=== PATIENT | female | born 1980 | race Caucasian/White ===

== ENCOUNTER 2017-05-26 22:41 | Emergency (ER) | payer SELFPAY ==
[~2017-05-26] VITALS: Ht 172.7 cm; Wt 75.0 kg
[2017-05-26 22:44] VITALS: BP 124/87
[2017-05-27] MEDS ORDERED: CEFTRIAXONE 250 MG IM ONE
[2017-05-27] MEDS ORDERED: AZITHROMYCIN 500 MG TABLET PO ONE
[2017-05-27] MEDS ORDERED: CEFTRIAXONE 250 MG ONE (00:09)
[2017-05-27] MEDS ORDERED: AZITHROMYCIN 500 MG TABLET ONE (00:09)
[2017-05-27] MEDS ORDERED: LIDOCAINE 1%, 20ML ONE (00:10)
== END 2017-05-27 00:54 | disposition home or self-care (01) ==
LOC: ED 23:59
DX: A54.03 Gonococcal cervicitis, unspecified (principal); A56.09 Other chlamydial infection of lower genitourinary tract; F17.210 Nicotine dependence, cigarettes, uncomplicated; Z98.51 Tubal ligation status
CPT/HCPCS: 87210; 87491; 87591; 87808; 96372; 99284; J0696